=== PATIENT | female | born 1950 | race Caucasian/White ===

== ENCOUNTER → 2018-04-25 | Day surgery (SDC) | payer OTHER ==
[~2018-04-25] VITALS: Ht 165.1 cm; Wt 70.3 kg
--- NOTE | 2018-04-25 19:58 | Operative Report ---
Operative/Inv Procedure Report Surgery Date: 04/25/18 Name of Procedure: right renal ESWL, fluoroscopy: cystoscopy-bladder biopsy with fulguration of bladder tumor. Pre-Operative Diagnosis: right renal stone with gross hematuria Post-Operative Diagnosis: right stone: bladder cancer Estimated Blood Loss: scant Surgeon/Crisis Intervention Counselor: Chad Lui MD Anesthesia: moderate sedation Specimens: bladder biopsy Complications: none Operative/Procedure Note Note: The patient was taken to the operating room placed on the OR table in supine position. Timeout was performed, with the patient awake, in order to confirm correct procedure, laterality, anesthesia, and other pertinent perioperative information. After adequate anesthesia and antibiotics, the patient was then positioned over the ESWL table cutout overlying the treatment dome. Fluoroscopy, using AP and oblique views, as well as renal ultrasound, or performed in order to locate the stone. The position of the RIGHT renal stone was optimized, and positioned in the middle of the ESWL crosshairs. The stone was measured to be approximately 6 mm in size. ESWL was initiated at low power, and after 200 shockwaves delivered , noting the patient's tolerance to the shockwaves, the power was increased to maximum. At the end of 2500 shockwaves, fluoroscopy confirms the change in consistency of the stone, indicating shattering of the stone. The patient was then frog legged, draped and prepped in the usual surgical fashion. 22 Samoan cystoscope sheath with a 30 angle lens was inserted into the bladder without difficulty. Upon entering the bladder, a 2cm papillary mass , consistent with cancer, was seen at the left lateral wall. A biopsy forcept was inserted in order to grasp a small portion of the mass. the biopsy specimen was sent to pathology. Bugbee cauterization was performed to adequately control the bleeding from the biopsy stalk. The bladder was copiously irrigated, then drained, and the cystoscope was then removed. All sponge needle and instrument count were correct at the end of the case. The patient tolerated the procedures well, and was taken to the recovery room in satisfactory condition. The patient is discharged home with pain medication, and follow-up instructions for the TURBT. Findings: 2cm papillary bladder mass: 7mm right renal stone Discharge Disposition: Same Day Admissions Additional Comments: f/u for TURBT and mitomycin CC: Chad Lui MD
== END ==
LOC: STS 01:15
DX: N20.0 Calculus of kidney (principal); D41.4 Neoplasm of uncertain behavior of bladder; R31.0 Gross hematuria; Z87.891 Personal history of nicotine dependence
CPT/HCPCS: J2250

== ENCOUNTER → 2018-04-27 | Day surgery (SDC) | payer OTHER ==
[~2018-04-27] VITALS: Ht 165.1 cm; Wt 70.3 kg
--- NOTE | 2018-05-02 07:40 | Operative Report ---
Operative/Inv Procedure Report Surgery Date: 04/27/18 Name of Procedure: cystoscopy: TURBT: mitomycin bladder irrigation in RR Pre-Operative Diagnosis: bladder cancer Post-Operative Diagnosis: same Estimated Blood Loss: less than 50ml Surgeon/Accounts Payable Analyst: Chad Lui MD Anesthesia: laryngeal mask airway Drains: 18 fr camarillo used for mitomycin Specimens: bladder tumor Complications: none Operative/Procedure Note Note: The patient was taken to the operating room, and placed on the OR table in supine position. Timeout was performed, with the patient awake, to confirm correct patient, procedure, anesthesia, antibiotics, and other pertinent medardo- operative information. After adequate anesthesia and antibiotics, the patient was then placed in lithotomy stirrups, draped and prepped in usual surgical fashion. A 26 Hungarian resectoscope sheath with a 30 angle lens, and 24 Hungarian loop, was inserted into the urethra, and advanced into the bladder without difficulty. Upon entering the bladder, the bladder have a solitary papillary lesion along the left bladder wall, the orifice was not visible. The right ureteral orifice was in its orthotopic position, with clear efflux. The solitary 1.5 Cm papillary lesion was visualized on the left lateral wall of the bladder, consistent with tumor. No other tumors were seen on thorough and systematic surveillance. Under direct visualization, this 1.5 cm papillary lesion was resected from superficial, to deeper layers, including partial detrusor muscle base resection. The entire tumor was removed, along with a 0.5 cm margin of normal bladder mucosa as a border. The tumor fragments were evacuated, and sent to pathology. Cauterization of the base of the tumor was performed, in order to achieve good hemostasis. The bladder was copiously irrigated once again with 3 L of saline. The resectoscope was removed leaving the bladder full. The bladder was drained by inserting an 18 Hungarian [place] catheter, without difficulty , and drained clear fluid. 10 mL of sterile water was placed in the balloon, and the [place] catheter was plugged after complete decompression of the bladder. The patient tolerated procedure well was then taken to recovery room in satisfactory condition. In the recovery room, Mitomycin 40mg in 40cc sterile saline, was instilled into the bladder using the indwelling 18fr catheter. The [place] was clamped, for one hour, with the pt turned from [id number] every 15minutes, during mitomycin instillation. The patient tolerated this part of the procedures well, the catheter was removed for the pt. to void. The patient tolerated both procedures well and discharged withpain meds, and antibiotics. The patient is scheduled for follow-up in the office in 2 weeks time. Discharge Disposition: PACU CC: Chad Lui MD
== END ==
LOC: STS 01:46
DX: C67.2 Malignant neoplasm of lateral wall of bladder (principal); N32.89 Other specified disorders of bladder; Z87.442 Personal history of urinary calculi; Z87.891 Personal history of nicotine dependence
CPT/HCPCS: J2250; J9280